=== PATIENT | male | born 1970 | race Caucasian/White ===

== ENCOUNTER → 2020-04-01 | Outpatient (CLI) | payer OTHER ==
--- NOTE | 2020-04-01 10:51 | Diagnostic Imaging Report ---
TECHNIQUE: Magnetic resonance imaging of the RIGHT KNEE was performed WITHOUT injected contrast. HISTORY: Knee pain COMPARISON: None available. FINDINGS: LIGAMENTS AND TENDONS: ACL: Intact PCL: Intact Collateral ligaments: Intact Iliotibial band: Unremarkable Popliteal tendon: Intact Extensor mechanism: Intact JOINT: Menisci: Medial: Degeneration without discrete tear. Lateral: Degeneration with probable horizontal tearing of the body. Articular Cartilage: Medial Compartment: Diffuse partial-thickness cartilage loss Lateral Compartment: Diffuse partial-thickness cartilage loss Patellofemoral Compartment: Diffuse high-grade cartilage loss with areas of full-thickness erosion Joint Fluid: Joint effusion BONE: No focal or infiltrative bone marrow replacing abnormality. No acute fracture. SOFT TISSUES: Otherwise, unremarkable. IMPRESSION: Meniscus degeneration with probable horizontal tearing of the lateral meniscus body. Tricompartmental cartilage loss, patellofemoral compartment predominant Signed by: Dr. Shabbir Franco M.D. on 04/01/2020 10:48 AM
== END ==
LOC: MRI 09:33
PROVIDERS: ATTEND Specialist
DX: S83.221A Peripheral tear of medial meniscus, current injury, right knee, initial encounter (principal)